=== PATIENT | male | born 1970 | race Caucasian/White ===

== ENCOUNTER 2017-11-11 20:22 | Emergency (ER) | payer SELFPAY ==
[~2017-11-11] VITALS: Ht 177.8 cm; Wt 104.6 kg
[2017-11-12] MEDS ORDERED: MEDROL DOSEPAK4 MG PO (00:59)
[2017-11-12 01:10] VITALS: BP 132/86
== END 2017-11-12 01:11 | disposition home or self-care (01) ==
LOC: EME 20:22
DX: S40.012A Contusion of left shoulder, initial encounter (principal); S20.219A Contusion of unspecified front wall of thorax, initial encounter; S70.02XA Contusion of left hip, initial encounter; S00.93XA Contusion of unspecified part of head, initial encounter; S90.02XA Contusion of left ankle, initial encounter; S30.0XXA Contusion of lower back and pelvis, initial encounter; S16.1XXA Strain of muscle, fascia and tendon at neck level, initial encounter; M25.562 Pain in left knee; W10.9XXA Fall (on) (from) unspecified stairs and steps, initial encounter; M50.30 Other cervical disc degeneration, unspecified cervical region; M25.78 Osteophyte, vertebrae; F17.200 Nicotine dependence, unspecified, uncomplicated
CPT/HCPCS: 70450; 71045; 72100; 72125; 73030; 73502; 73564; 73610; 99281; 99285; J1885; J3010